=== PATIENT | female | born 1985 | race Two or more races ===

== ENCOUNTER 2018-08-21 12:47 | Emergency (ER) | payer OTHER ==
[~2018-08-21] VITALS: Ht 165.1 cm; Wt 68.0 kg
[2018-08-21 12:47] VITALS: BP 139/89
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
[2018-08-21] MEDS ORDERED: LORazepam 1 MG TABLET PO ONE (13:30)
== END 2018-08-21 15:48 | disposition home or self-care (01) ==
LOC: MERGE 12:47 → ER 12:47
DX: F41.9 Anxiety disorder, unspecified (principal); R07.89 Other chest pain
CPT/HCPCS: 99284